=== PATIENT | male | born 1990 | race African-American/Black ===

== ENCOUNTER 2018-11-07 08:21 | Emergency (ER) | payer OTHER ==
[~2018-11-07] VITALS: Ht 185.4 cm; Wt 104.3 kg
[2018-11-07 08:33] VITALS: BP 139/71
--- NOTE | 2018-11-07 10:51 | PHYS DOC ---
Past History Past Medical History: No Pertinent History Past Surgical History: Other Additional Past Surgical Histo: GYNOMASTIA Alcohol Use: None Drug Use: None Adult General Chief Complaint Chief Complaint: SKIN PROBLEM HPI HPI Patient is a 28 yo m with itchy hives noticed it after eating seafood some tingling red raised rash coming and going has not tried anything wants blood test to check for seafood allergy no sob the rash is not currently present Review of Systems Review of Systems \ Physical Exam Physical Exam Constitutional: Well developed, well nourished, no acute distress, non-toxic ap pearance. [] HENT: Normocephalic, atraumatic, bilateral external ears normal, oropharynx moist, no oral exudates, nose normal. [] Eyes: PERRLA, EOMI, conjunctiva normal, no discharge. [] Neck: Normal range of motion, no tenderness, supple, no stridor. [] Cardiovascular:Heart rate regular rhythm, no murmur [] Lungs & Thorax: Bilateral breath sounds clear to auscultation [] Abdomen: Bowel sounds normal, soft, no tenderness, no masses, no pulsatile masses. [] Skin: Warm, dry, no erythema, no rash. [] Back: No tenderness, no CVA tenderness. [] Extremities: No tenderness, no cyanosis, no clubbing, ROM intact, no edema. [] Neurologic: Alert and oriented X 3, normal motor function, normal sensory function, no focal deficits noted. [] Psychologic: Affect normal, judgement normal, mood normal. [] Current Patient Data Vital Signs Vital Signs Date Time Temp Pulse Resp B/P (MAP) Pulse Ox O2 Delivery O2 Flow Rate FiO2 11/07/18 08:33 98.5 74 16 99 Room Air EKG EKG s * None Temperature (Fahrenheit): * 98.5 degrees F (97.6-99.5) Patient Temperature * 98.5 degrees F (97.5-99.5) Temperature Source * Temporal Artery Scan Blood Pressure Systolic * 139 mm Hg (100-140) Blood Pressure Diastolic * 71 mm Hg (60-100) Blood Pressure Mean * 93 mm Hg Blood Pressure Location * Left Arm Blood Pressure Source * Automatic Cuff Pulse Rate * 74 beats per minute (60-90) Pulse Assessment Method * Monitor Respiratory Rate * 16 breaths per minute (12-24) Oxygen Delivery Method * Room Air Bedside Pulse Oximetry * 99 % Treatment Prior to Arrival * No Complaint of Pain [] Radiology/Procedures Radiology/Procedures [] Course & Med Decision Making Course & Med Decision Making Pertinent Labs and Imaging studies reviewed. (See chart for details) []no rash seen vitals good recommended benadryl prn pt reassured Marlene Disclaimer Marlene Disclaimer This electronic medical record was generated, in whole or in part, using a voice recognition dictation system. Departure Departure: Impression: Primary Impression: Justine Disposition: 01 HOME, SELF-CARE Condition: STABLE Patient Instructions: Justine, [id number] JESSICA ROBERTSON MD Nov 07, 2018 10:51
== END 2018-11-07 08:45 | disposition home or self-care (01) ==
LOC: ER 08:21
DX: L50.9 Urticaria, unspecified (principal); Z91.013 Allergy to seafood
CPT/HCPCS: 99281